=== PATIENT | male | born 1960 | race Caucasian/White ===

== ENCOUNTER 2017-06-04 07:34 | Day surgery (SDC) | payer OTHER, BC ==
[~2017-06-04] VITALS: Ht 185.4 cm; Wt 110.6 kg
[~2017-06-04 07:34] MED LIST: ASPIR 8181 M1 PO; ASPIRIN81 M2 PO; ATORVASTATIN CA80 MG PO; CLOPIDOGREL75 MG PO; FLONASE16 G1 BOTH NARES; PAMELOR10 MG PO; PANTOPRAZOLE SO40 MG PO; PLAVIX75 MG PO; PREVACID15 MG PO; PREVACID30 MG PO; ROXICODONE5 MG PO; TYLENOL REGULA325 MG PO; VITAMIN D31000 UNIT PO
[2017-06-04 08:48] VITALS: BP 157/70
[2017-06-04 12:28] VITALS: BP 145/79
[2017-06-04 13:30] VITALS: BP 141/81
== END 2017-06-04 13:35 | disposition home or self-care (01) ==
LOC: SDC 07:34
PROC: 0RNJ4ZZ Release Right Shoulder Joint, Percutaneous Endoscopic Approach (ICD-10-PCS; principal; 2017-06-04)
PROC: 0LQ10ZZ Repair Right Shoulder Tendon, Open Approach (ICD-10-PCS; 2017-06-04)
DX: S46.011A Strain of muscle(s) and tendon(s) of the rotator cuff of right shoulder, initial encounter (principal); X50.0XXA Overexertion from strenuous movement or load, initial encounter; Y92.89 Other specified places as the place of occurrence of the external cause; Y99.0 Civilian activity done for income or pay; G47.33 Obstructive sleep apnea (adult) (pediatric); K22.70 Barrett's esophagus without dysplasia; M47.812 Spondylosis without myelopathy or radiculopathy, cervical region; Z87.891 Personal history of nicotine dependence
CPT/HCPCS: C1713; J0171; J0330; J0690; J1100; J2250; J2405; J2795; J3010